=== PATIENT | male | born 1985 | race Caucasian/White ===

== ENCOUNTER 2020-03-14 20:44 | Emergency (ER) | payer OTHER, SELFPAY ==
[2020-03-14 21:08] VITALS: BP 131/84; PULSE 62; RESP 14; TEMP 36.8; O2SAT 96; BMI 35.9
--- NOTE | 2020-03-14 21:39 | ED_ITS ---
HPI - General Adult General: Chief complaint: General Medical Stated complaint: has fishing hook in back Time Seen by Provider: 03/14/20 21:27 Source: patient Mode of arrival: ambulatory Limitations: no limitations History of Present Illness: HPI narrative: Patient comes in with a fishhook to his left flank area of his back. Patient reports was pulling a fishing line loose from the tree and it came back and caught him in his left flank area through his shirt. Patient does not recall his last tetanus shot. Patient appears well. Review of Systems General: Reports: 10 or more systems reviewed and unremarkable except in HPI and below Skin/Breast: Reports: other ([place] in back) Physical Exam Const: COMMON NORMALS: no acute distress and patient oriented x3 GENERAL APPEARANCE: cooperative HENMT: COMMON NORMALS: normocephalic and Normal external nose present HEAD & SCALP: normal to inspection and normocephalic NOSE: Normal external nose present MOUTH: Normal oral and palatal mucosa present Eye: GENERAL EYE: appearance normal, both eyes and all related structures Neck/C-Spine: COMMON NORMALS: full ROM Chest: COMMONS NORMALS: normal inspection of the chest Resp: COMMON NORMALS: normal respiratory effort EFFORT & INSPECTION: Yes able to speak in complete sentences Cardio: COMMON NORMALS: regular rate and regular rhythm RATE: regular rate RHYTHM: regular rhythm GI: COMMON NORMALS: non-tender : COMMON NORMALS: Yes no CVA tenderness BLADDER/KIDNEY EXAM: Yes no CVA tenderness Back/Pelvis: COMMON NORMALS: no CVA tenderness and thoracic and lumbar spine normal to inspection Extremity: COMMON NORMALS: normal to inspection Neuro: COMMON NORMALS: patient oriented x3 and moves all extremities Psych: COMMON NORMALS: mental status grossly normal and cooperative Skin: NARRATIVE SKIN EXAM: [place] in the low flank area of the left back. Procedures Foreign Body Removal Site: left and other (trunk) Description of foreign body: fish hook Sedation/Analgesia: none Technique: removal with forceps and incision made to facilitate removal Confirmed by:: direct visualization Complications: none Post-procedure exam: awake, alert Course Vital Signs: Vital signs: Vital Signs Temperature 98.2 F 03/14/20 21:08 Pulse Rate 62 03/14/20 21:08 Respiratory Rate 14 03/14/20 21:08 Blood Pressure 131/84 03/14/20 21:08 Pulse Oximetry 96 03/14/20 21:08 MDM - General Adult MDM Narrative: Medical decision making narrative: Patient comes in for a fishhook in the skin of his left lower flank of his back. Exam notes a [place] fishhook with 1 kennedy in the skin of his back. [place] is embedded superficially. Differential diagnosis includes need for tetanus, laceration, foreign body. Foreign body was removed with small incision under local anesthetic. Patient tolerated well. Tetanus was updated. Post procedure care was reviewed with patient. Patient reported understanding. Discharge Plan Discharge Patient Disposition: Home Clinical Impression: Foreign body of skin of back Qualifiers: Encounter type: initial encounter Qualified Code(s): S20.459A - Superficial foreign body of unspecified back wall of thorax, initial encounter Condition: Stable Discharge Orders: Discharge Order (Routine); Ordered 03/14/20 Ordered By: Chris Bejarano Discharge Diet: Usual diet Discharge Activity: Increase activity as tolerated Patient Instructions: [place] Injuries Activity Restrictions/Additional Instructions: Keep wound clean and dry. You can apply antibiotic ointment to the wound if needed. Drink plenty of water. Acetaminophen or ibuprofen for pain. Follow-up with primary care as needed. Return to the emergency department for new concerns. Discharge Date/Time: 03/14/20 21:51 Coding Level of Care Code ED Wet Press Tender for Diana Hoff
[2020-03-14] MEDS: tetanus-dipt-pertussis 0.5 mL SDV IM (21:44)
== END 2020-03-14 21:51 | disposition home or self-care (01) ==
PROVIDERS: Emergency Provider Nurse Practitioner Family
DX: S31.149A Puncture wound of abdominal wall with foreign body, unspecified quadrant without penetration into peritoneal cavity, initial encounter (principal); W26.8XXA Contact with other sharp object(s), not elsewhere classified, initial encounter; Z23 Encounter for immunization
CPT/HCPCS: 10120; 12345; 90471; 90715; 99281; 99282